=== PATIENT | male | born 1990 | race American Indian/Alaskan Native ===

== ENCOUNTER 2016-10-26 14:57 | Emergency (ER) | payer SELFPAY ==
[2016-10-26 17:06] LABS: Bacteria,Urine 1+ /HPF (Negative); Bilirubin,Urine NEG (Negative); Blood,Urine SM (Negative); Ketones,Urine NEG (Negative); Leukocyte Esterase,Urine LG (Negative); Mucus,Urine FEW /HPF; Nitrite,Urine NEG (Negative); Protein,Urine <15 mg/dL mg/dL (Negative); Sperm,Urine FEW /HPF (NP); Urobilinogen,Urine < 2.0 mg/dL (<2.0)
[2016-10-26 17:11] LABS: WBC,Urine > 182.0 /HPF (0.0-6.0)
[2016-10-26 18:28] VITALS: BP 107/64
[2016-10-26] MEDS ORDERED: ROCEPHIN IM ONE (19:09)
[2016-10-26] MEDS ORDERED: ZITHROMAX PO ONE (19:09)
[2016-10-26] MEDS ORDERED: ZOFRAN ODT PO ONE (19:09)
[2016-10-26] MEDS ORDERED: XYLOCAINE 1% MPF 5 mL INFILTRATI ONE (19:09)
--- NOTE | 2016-10-26 19:09 | Emergency Department Report ---
ED Male HPI - General Chief complaint: Urogenital-Male Stated complaint: PAINFUL URINATION Time Seen by Provider: 10/26/16 18:35 Source: patient Mode of arrival: Ambulatory Limitations: No Limitations - History of Present Illness Complaint: dysuria -: Gradual, days(s) Location: penis Radiation: none Severity: mild Severity scale (0 -10): 1 Quality: burning Consistency: intermittent (with urination) Improves with: none Worsens with: urination new sexual partner denies other symptoms (history of epididymitis ) - Related Data Sexually active: Yes Previous Rx's Medication Instructions Recorded Last Taken Type Doxycycline [Vibramycin CAP] 100 mg PO Q12HR #20 capsule 04/17/16 Unknown Rx Ibuprofen [Motrin] 800 mg PO Q8HR PRN #20 tablet 04/17/16 Unknown Rx Ondansetron [Zofran Odt] 4 mg PO Q8HR #20 tab.rapdis 04/17/16 Unknown Rx Sulfamethoxazole/Trimethoprim 1 each PO BID #14 tablet 10/26/16 Unknown Rx [Bactrim DS TAB] Allergies Allergy/AdvReac Type Severity Reaction Status Date / Time No Known Allergies Allergy Verified 11/28/15 11:33 ED Review of Systems ROS: Stated complaint: PAINFUL URINATION Other details as noted in HPI Comment: All other systems reviewed and negative ED Past Medical Hx - Past Medical History Previous Medical History?: Yes Additional medical history: ulcers - Surgical History Past Surgical History?: Yes Additional Surgical History: oral surgery, hemmorhoid removal - Social History Smoking Status: Current Every Day Smoker Substance Use Type: Alcohol - Medications Home Medications: Home Medications Medication Instructions Recorded Confirmed Last Taken Type Doxycycline [Vibramycin CAP] 100 mg PO Q12HR #20 capsule 04/17/16 Unknown Rx Ibuprofen [Motrin] 800 mg PO Q8HR PRN #20 tablet 04/17/16 Unknown Rx Ondansetron [Zofran Odt] 4 mg PO Q8HR #20 tab.rapdis 04/17/16 Unknown Rx Sulfamethoxazole/Trimethoprim 1 each PO BID #14 tablet 10/26/16 Unknown Rx [Bactrim DS TAB] ED Physical Exam - General Limitations: No Limitations - Other Other exam information: GENERAL: Patient in no acute distress HEAD: Normocephalic, atraumatic EYES: PERRLA, EOM intact, no scleral icterus, no papilledema, no conjunctival hemorrhage, visual cassidy and acuity wnl, NOSE: No tenderness, discharge, sinus tenderness MOUTH: No erythema, bleeding, exudate HEART: Regular rate and rhythm, no murmur, S1-S2 are auscultated, pulses are symmetric LUNGS: No wheezing, rales, rhonchi, bilateral breath sounds ABDOMEN: Normal bowel sounds, no tenderness, no rebound, no guarding, no masses , no CVA tenderness MUSCULOSKELETAL: Normal joint range of motion, no redness, no swelling, no tenderness NEUROLOGIC: GCS 15, Alert and Oriented x3, Cranial nerves intact, normal sensation, normal strength, normal gait, no cerebellar deficit PSYCHIATRIC: No homicidal or suicidal ideation, no anxiety, no depression, no hallucinations SKIN: Skin is warm and dry, no wounds, no rashes GENITOURINARY: Male: No rashes, ulcers, discharge, no scrotal masses, no hernia ED Course Vital Signs 10/26/16 10/26/16 10/26/16 15:46 18:22 18:27 Temperature 98.7 F 98.1 F Pulse Rate 70 72 Respiratory 20 16 16 Rate Blood Pressure 129/86 Blood Pressure 107/64 [Left] O2 Sat by Pulse 100 99 99 Oximetry ED Medical Decision Making - Lab Data Laboratory Results - last 24 hr 10/26/16 16:13 Urine Color Yellow Urine Turbidity Slightly-cloudy Urine pH 6.0 Ur Specific [place] 1.019 Urine Protein <15 mg/dl Urine Glucose (UA) Neg Urine Ketones Neg Urine Blood Sm Urine Nitrite Neg Urine Bilirubin Neg Urine Urobilinogen < 2.0 Ur Leukocyte Esterase Lg Urine WBC (Auto) > 182.0 H Urine RBC (Auto) 29.0 U Epithel Cells (Auto) < 1.0 Urine Bacteria (Auto) 1+ Urine Mucus Few Urine Sperm Few - Medical Decision Making Patient comfortable. Updated with results. Plan discharge with outpatient follow-up. Patient agrees with plan and will return if symptoms worsen. Critical care attestation.: If time is entered above; I have spent that time in minutes in the direct care of this critically ill patient, excluding procedure time. ED Disposition Clinical Impression: UTI (urinary tract infection) Qualifiers: Urinary tract infection type: site unspecified Hematuria presence: without hematuria Qualified Code(s): N39.0 - Urinary tract infection, site not specified Disposition: DISCHARGED TO HOME OR SELFCARE Is pt being admited?: No Condition: Stable Instructions: Urinary Tract Infection in Men (ED) Prescriptions: Sulfamethoxazole/Trimethoprim [Bactrim DS TAB] 1 each PO BID #14 tablet Referrals: PRIMARY CARE, [Primary Care Provider] - 2-3 Days Time of Disposition: 19:08
== END 2016-10-26 20:25 | disposition home or self-care (01) ==
LOC: ED 14:57
DX: N39.0 Urinary tract infection, site not specified (principal); F17.200 Nicotine dependence, unspecified, uncomplicated
CPT/HCPCS: 81001; 87086; 87591; 96372; 99283; J0696; Q0162

== ENCOUNTER 2017-03-13 15:14 | Emergency (ER) | payer SELFPAY ==
[2017-03-13 15:46] VITALS: BP 160/108
[2017-03-13 16:35] LABS: Basophils % (Auto) 0.5 % (0.0-1.8); Eosinophils % (Auto) 0.2 % (0.0-4.3); Hematocrit 51.4 % (35.5-45.6); Hemoglobin 17.3 gm/dl (11.8-15.2); Mean Corpuscular HGB Conc 34 % (32-34); Mean Corpuscular Hemoglobin 30 pg (28-32); Mean Corpuscular Volume 88 fl (84-94); Platelet Count 257 K/mm3 (140-440); Red Blood Count 5.82 M/mm3 (3.65-5.03); Red Cell Distribution Width 13.6 % (13.2-15.2); White Blood Count 12.2 K/mm3 (4.5-11.0)
[2017-03-13 16:47] LABS: Anion Gap 20 mmol/L; BUN/Creatinine Ratio 6.36; Blood Urea Nitrogen 7 mg/dL (9-20); Calcium 9.9 mg/dL (8.4-10.2); Carbon Dioxide 25 mmol/L (22-30); Chloride 100.2 mmol/L (98-107); Glucose 111 mg/dL (75-100); Potassium 3.8 mmol/L (3.6-5.0); Sodium 141 mmol/L (137-145)
--- NOTE | 2017-03-14 00:58 | ED Elopement Review ---
ED Pt Elopement review - Results review Lab results: Laboratory Tests 03/13/17 03/13/17 03/13/17 16:08 16:08 16:08 WBC 12.2 H RBC 5.82 H Hgb 17.3 H Hct 51.4 H MCV 88 MCH 30 MCHC 34 RDW 13.6 Plt Count 257 Lymph % (Auto) 15.4 Cass % (Auto) 7.4 H Eos % (Auto) 0.2 Baso % (Auto) 0.5 Lymph # 1.9 Cass # 0.9 H Eos # 0.0 Baso # 0.1 Seg Neutrophils % 76.5 H Seg Neutrophils # 9.3 H Sodium 141 Potassium 3.8 Chloride 100.2 Carbon Dioxide 25 Anion Gap 20 BUN 7 L Creatinine 1.1 Estimated GFR > 60 BUN/Creatinine Ratio 6.36 Glucose 111 H Calcium 9.9 Plasma/Serum Alcohol < 0.01 - Call Back decision Pt Call Back Decision: No action required
== END 2017-03-13 17:45 | disposition left against medical advice (07) ==
LOC: ED 15:14
DX: R51 Headache (principal); Z53.21 Procedure and treatment not carried out due to patient leaving prior to being seen by health care provider
CPT/HCPCS: 36415; 80048; 85025; 93005; 93010; G0480; 80320

== ENCOUNTER 2017-09-18 00:11 | Emergency (ER) | payer SELFPAY ==
[2017-09-18 00:56] LABS: Bacteria,Urine 3+ /HPF (Negative); Bilirubin,Urine NEG (Negative); Blood,Urine MOD (Negative); Color,Urine Yellow (Yellow); Mucus,Urine FEW /HPF; Nitrite,Urine NEG (Negative)
[2017-09-18 01:00] LABS: WBC,Urine > 182.0 /HPF (0.0-6.0)
--- NOTE | 2017-09-18 01:19 | Ultrasound Report ---
FINAL REPORT EXAM: US TESTICULAR DOPPLER COMP HISTORY: Left testicle swelling and pain TECHNIQUE: Routine sonographic evaluation was obtained of the scrotum along with Doppler interrogation of both testicles. FINDINGS: The right testicle is normal size contour blood flow and echotexture measuring 4.5 cm x 1.5 cm x 2.5 cm. The right epididymis is normal in size and echotexture. There is no evidence of hydrocele. The left testicle is normal size contour blood flow and echotexture measuring 4.1 cm x 1.9 cm x 2.8 cm. The left epididymis is enlarged having heterogeneous echotexture and increased blood flow compatible with epididymitis. There is no evidence of hydrocele. IMPRESSION: Left-sided epididymitis. No evidence of testicular neoplasia or torsion. No evidence of hydrocele or varicocele.
--- NOTE | 2017-09-18 06:03 | Emergency Department Report ---
ED Male HPI - General Chief complaint: Urogenital-Male Stated complaint: d/c from penis Time Seen by Provider: 09/18/17 05:57 Source: patient Mode of arrival: Ambulatory Limitations: No Limitations - History of Present Illness Initial comments: This is a 26 y.o. male presents with penile discharge, pelvic pain, and left swollen testicle. Patient reports discharge started 1 week ago and swelling of testicle last night. States it is painful to void and sit. He had something similar to this once and think it is back. Admits to recent exposure to sexually transmitted infections. Denies fever, back pain, frequency, and urgency. MD Complaint: testicle pain, testicle swelling, penile discharge, dysuria -: week(s) (1) Location: left testicle, abdomen Radiation: none Severity: severe Severity scale (0 -10): 10 Quality: aching, burning Consistency: constant Improves with: none Worsens with: urination, movement new sexual partner discharge, swelling, dysuria. denies: mass, rash, urinary retention, blood in urine, fever, nausea/vomiting, incontinence - Related Data Sexually active: Yes Previous Rx's Medication Instructions Recorded Last Taken Type Doxycycline [Vibramycin CAP] 100 mg PO Q12HR #20 capsule 04/17/16 Unknown Rx Ibuprofen [Motrin] 800 mg PO Q8HR PRN #20 tablet 04/17/16 Unknown Rx Ondansetron [Zofran Odt] 4 mg PO Q8HR #20 tab.rapdis 04/17/16 Unknown Rx Sulfamethoxazole/Trimethoprim 1 each PO BID #14 tablet 10/26/16 Unknown Rx [Bactrim DS TAB] Doxycycline Monohydrate 100 mg PO BID 14 Days #28 tablet 09/18/17 Unknown Rx Allergies Allergy/AdvReac Type Severity Reaction Status Date / Time No Known Allergies Allergy Verified 11/28/15 11:33 ED Review of Systems ROS: Stated complaint: d/c from penis Other details as noted in HPI Constitutional: denies: chills, fever Respiratory: denies: cough, shortness of breath, wheezing Cardiovascular: denies: chest pain, palpitations Gastrointestinal: abdominal pain. denies: nausea, diarrhea Genitourinary: dysuria, discharge, testicular pain (left). denies: urgency, frequency, hematuria, testicular mass Skin: denies: rash, lesions Neurological: denies: headache, weakness, paresthesias ED Past Medical Hx - Past Medical History Previous Medical History?: No Additional medical history: ulcers - Surgical History Additional Surgical History: oral surgery, hemmorhoid removal - Social History Smoking Status: Current Every Day Smoker Substance Use Type: None - Medications Home Medications: Home Medications Medication Instructions Recorded Confirmed Last Taken Type Doxycycline [Vibramycin CAP] 100 mg PO Q12HR #20 capsule 04/17/16 Unknown Rx Ibuprofen [Motrin] 800 mg PO Q8HR PRN #20 tablet 04/17/16 Unknown Rx Ondansetron [Zofran Odt] 4 mg PO Q8HR #20 tab.rapdis 04/17/16 Unknown Rx Sulfamethoxazole/Trimethoprim 1 each PO BID #14 tablet 10/26/16 Unknown Rx [Bactrim DS TAB] Doxycycline Monohydrate 100 mg PO BID 14 Days #28 tablet 09/18/17 Unknown Rx ED Physical Exam - General Limitations: No Limitations General appearance: alert, in no apparent distress - Respiratory Respiratory exam: Present: normal lung sounds bilaterally. Absent: respiratory distress - Cardiovascular Cardiovascular Exam: Present: regular rate, normal rhythm. Absent: systolic murmur, diastolic murmur, rubs, gallop - GI/Abdominal GI/Abdominal exam: Present: soft, normal bowel sounds - exam: Present: testicular tenderness, urethral discharge (purulent) External exam: Present: erythema, swelling (hot, erythematous, swollen hemiscrotum). Absent: lesions, lacerations, ecchymosis, bleeding - Neurological Exam Neurological exam: Present: alert, oriented X3 - Skin Skin exam: Present: warm, dry, intact, normal color. Absent: rash ED Course Vital Signs 09/18/17 00:22 Temperature 99.4 F Pulse Rate 94 H Respiratory 16 Rate Blood Pressure 137/98 O2 Sat by Pulse 100 Oximetry ED Medical Decision Making - Radiology Data Radiology results: image reviewed Testicular US IMPRESSION: Left-sided epididymitis. No evidence of testicular neoplasia or torsion. No evidence of hydrocele or varicocele. - Medical Decision Making This is a 26 y.o. male who presents with penile discharge, dysuria, and swollen left testicle. Discharge for 1 week and swollen left testicle for 1 day. Patient was examined by me. History of epididymitis. Recent STI exposure. Obtained UA elevated WBC and moderate blood, Testicular US noted left side epididymitis, and GC pending. Discussed results and ER plan with patient. Patient agreed to ER care plan. Given ceftriaxone 250 mg IM in ER. Discharged home with doxycycline 100 mg po bid x 14 days. Instructed to avoid unprotected sexual intercourse. Inform partners. Scrotal elevation. Use tylenol or NSAID's for pain. Complete the full course of antibiotics to prevent recurrence. Critical care attestation.: If time is entered above; I have spent that time in minutes in the direct care of this critically ill patient, excluding procedure time. ED Disposition Clinical Impression: Epididymitis Disposition: - TO HOME OR SELFCARE Is pt being admited?: No Does the pt Need Aspirin: No Condition: Stable Instructions: Epididymitis (ED), Safe Sex (ED), Sexually Transmitted Diseases ( ED) Additional Instructions: Avoid having unprotected sexual intercourse. Inform sexual partners of diagnosis for treatment. Wear jock strap for scrotal elevation until inflammation resolve. Take tylenol, ibuprofen, or naproxen to control pain and fever. complete the full course of antibiotics to prevent recurrence of infection. Follow up with the Health Department or primary care provider if symptoms persist after completion of treatment. Prescriptions: Doxycycline Monohydrate 100 mg PO BID 14 Days #28 tablet Referrals: [facility] [Outside] - 3[facility] Days [facility] - 3-5 Days [facility] [Outside] - 3-5 Days Forms: STI Treatment and Prevention, Work/School Release Form(ED) Time of Disposition: 06:31 Print Language: OCCITAN
[2017-09-18] MEDS ORDERED: ROCEPHIN IM ONE (06:18)
[2017-09-18] MEDS ORDERED: XYLOCAINE 1% MPF 5 mL INFILTRATI ONE (06:18)
[2017-09-18 06:38] VITALS: BP 141/84
== END 2017-09-18 06:44 | disposition home or self-care (01) ==
LOC: ED 00:11
DX: N45.1 Epididymitis (principal); F17.200 Nicotine dependence, unspecified, uncomplicated
CPT/HCPCS: 81001; 87591; 93975; 96372; 99284; J0696

== ENCOUNTER 2020-01-20 10:31 | Emergency (ER) | payer SELFPAY ==
[2020-01-20 10:38] VITALS: BP 143/103
--- NOTE | 2020-01-20 10:54 | Emergency Department Report ---
Chief Complaint: Urogenital-Male Stated Complaint: DISCHARGE Time Seen by Provider: 01/20/20 10:49 - HPI History of Present Illness: 29-year-old -[place] male presents to the ER for penile discharge and possible STD exposure. Patient denies any fever chills no nausea vomiting or diarrhea. Denies any abdominal pain shortness of breath or chest pain. - Exam Vital Signs: Vital Signs 01/20/20 10:35 Temperature 98.1 F Pulse Rate 72 Respiratory 18 Rate Blood Pressure 143/103 O2 Sat by Pulse 97 Oximetry Physical Exam: Alert and oriented no acute distress nontoxic in appearance Respirations even unlabored Patient is ambulatory without difficulties MSE screening note: Focused history and physical exam performed. Due to findings the following was ordered: 29-year-old -[place] male presents to the ER for penile discharge and possible STD exposure. Patient denies any fever chills no nausea vomiting or diarrhea. Denies any abdominal pain shortness of breath or chest pain. Patient referred to urgent care and health department for further evaluation and treatment. Patient is at no risk for loss of limb or life. ED Disposition for MSE Disposition: Z-07 MED SCREENING EXAM-LEFT Is pt being admited?: No Does the pt Need Aspirin: No Condition: Stable Referrals: PRIMARY CARE, [Primary Care Provider] - 3-5 Days [facility] [Other] - 3-5 Days Forms: Work/School Release Form(ED)
== END 2020-01-20 12:39 | disposition left against medical advice (07) ==
LOC: ED 10:31
DX: R36.9 Urethral discharge, unspecified (principal); Z53.21 Procedure and treatment not carried out due to patient leaving prior to being seen by health care provider

== ENCOUNTER 2020-06-08 07:46 | Emergency (ER) | payer SELFPAY ==
[2020-06-08 08:31] LABS: Basophils % (Auto) 0.4 % (0.0-1.8); Hematocrit 51.4 % (35.5-45.6); Hemoglobin 18.1 gm/dl (11.8-15.2); Lymphocytes % (Auto) 15.7 % (13.4-35.0); Mean Corpuscular HGB Conc 35 % (32-34); Mean Corpuscular Volume 97 fl (84-94); Monocytes # (Auto) 1.2 K/mm3 (0.0-0.8); Monocytes % (Auto) 9.2 % (0.0-7.3); Platelet Count 238 K/mm3 (140-440); Red Blood Count 5.31 M/mm3 (3.65-5.03); Red Cell Distribution Width 13.8 % (13.2-15.2)
[2020-06-08 08:47] LABS: BUN/Creatinine Ratio 8; Blood Urea Nitrogen 10 mg/dL (9-20); Calcium 10.1 mg/dL (8.4-10.2); Hemolysis Index 21
[2020-06-08 11:06] LABS: Bilirubin,Urine NEG (Negative); Blood,Urine MOD (Negative); Color,Urine Straw (Yellow); Urobilinogen,Urine < 2.0 mg/dL (<2.0)
[2020-06-08 11:27] LABS: Amphetamine Screen,Urine PRESUMPTIVE NEGATIVE; Benzodiazepines Screen,Urine PRESUMPTIVE NEGATIVE; Cannabinoid Screen,Urine PRESUMPTIVE POSITIVE; Cocaine Screen,Urine PRESUMPTIVE POSITIVE; Methadone Screen,Urine PRESUMPTIVE NEGATIVE; Opiate Screen,Urine PRESUMPTIVE NEGATIVE
== END 2020-06-08 08:15 | disposition left against medical advice (07) ==
LOC: ED 07:46
DX: R50.9 Fever, unspecified (principal); Z53.21 Procedure and treatment not carried out due to patient leaving prior to being seen by health care provider
CPT/HCPCS: 36415; 80048; 80307; 80320; 81001; 85025; G0480

== ENCOUNTER 2021-04-14 16:20 | Emergency (ER) | payer OTHER ==
[2021-04-14 20:34] VITALS: BP 157/97
--- NOTE | 2021-04-14 20:36 | Event Note ---
ED Screening Note ED Screening Note: n/v that began three days ago states he has been having blood in his vomit mild diarrhea +dark blood in stool got a COVID 19 test and it was negative hx of PUD not on any medication no allergies to meds +tobacco +marijuana +ETOH, a bottle a day This initial assessment/diagnostic orders/clinical plan/treatment(s) is/are subject to change based on patients health status, clinical progression and re- assessment by fellow clinical providers in the ED. Further treatment and workup at subsequent clinical providers discretion. Patient/guardian urged not to elope from the ED as their condition may be serious if not clinically assessed and managed. Initial orders include: labs
[2021-04-14 21:07] LABS: Basophils # (Auto) 0.1 K/mm3 (0.0-0.1); Basophils % (Auto) 0.9 % (0.0-1.8); Eosinophils # (Auto) 0.2 K/mm3 (0.0-0.4); Eosinophils % (Auto) 2.6 % (0.0-4.3); Hematocrit 54.9 % (35.5-45.6); Hemoglobin 18.4 gm/dl (11.8-15.2); Lymphocytes # (Auto) 1.8 K/mm3 (1.2-5.4); Lymphocytes % (Auto) 21.4 % (13.4-35.0); Mean Corpuscular HGB Conc 34 % (32-34); Mean Corpuscular Volume 99 fl (84-94); Monocytes # (Auto) 0.8 K/mm3 (0.0-0.8); Monocytes % (Auto) 9.6 % (0.0-7.3); Platelet Count 216 K/mm3 (140-440); Red Blood Count 5.54 M/mm3 (3.65-5.03); Red Cell Distribution Width 13.6 % (13.2-15.2)
[2021-04-14 21:14] LABS: Alanine Aminotransferase 19 units/L (7-56); Albumin 4.5 g/dL (3.9-5); BUN/Creatinine Ratio 8; Blood Urea Nitrogen 8 mg/dL (9-20); Calcium 10.4 mg/dL (8.4-10.2); Hemolysis Index 12
[2021-04-14 21:38] LABS: INR 0.97 (0.87-1.13)
[2021-04-14 21:39] LABS: Partial Thromboplastin Time 30.5 Sec. (24.2-36.6)
--- NOTE | 2021-04-14 22:45 | Cat Scan Report ---
CT ABDOMEN AND PELVIS WITH CONTRAST INDICATION / CLINICAL INFORMATION: Pt complains of abd pain, N/V/D, blood in stool and vomiting. TECHNIQUE: Axial CT images were obtained through the abdomen and pelvis after Omnipaque 300, 100 cc I V contrast. All CT scans at this location are performed using CT dose reduction for ALARA by means o f automated exposure control. COMPARISON: None available. FINDINGS: LOWER CHEST: No significant abnormality. LIVER: No significant abnormality. GALLBLADDER: No significant abnormality. BILE DUCTS: No significant abnormality. PANCREAS: No significant abnormality. SPLEEN: No significant abnormality. ADRENALS: No significant abnormality. RIGHT KIDNEY / URETER: No significant abnormality. LEFT KIDNEY / URETER: No significant abnormality. STOMACH / SMALL BOWEL: No significant abnormality. COLON: No significant abnormality. APPENDIX: No significant abnormality. PERITONEUM: No free fluid. No free air. No fluid collection. LYMPH NODES: No significant adenopathy. VASCULAR STRUCTURES: No significant abnormality. URINARY BLADDER: No significant abnormality. REPRODUCTIVE ORGANS: No significant abnormality. ADDITIONAL FINDINGS: Small fat-containing umbilical hernia. SKELETAL SYSTEM: No significant abnormality. IMPRESSION: Negative for obstruction or localized inflammation. Signer Name: Saurabh Alvarenga MD Signed: 04/14/2021 10:41 PM Workstation Name: [id number]
[2021-04-14] MEDS ORDERED: ALUM-MAG HYDROXIDE-SIMETHICONE 200-200-20MG/5ML ORAL LIQD 30 ML PO STA (22:51)
[2021-04-14] MEDS ORDERED: diphenhydrAMINE 25 MG/10 ML ORAL LIQUID PO ONE (22:51)
[2021-04-14] MEDS ORDERED: LIDOCAINE VISCOUS 2% 15 ML ORAL LIQD PO ONE (22:51)
--- NOTE | 2021-04-15 00:41 | Emergency Department Report ---
ED Abdominal Pain HPI - General Chief Complaint: GI Bleed Stated Complaint: ABD PAIN Time Seen by Provider: 04/14/21 20:34 Source: patient Mode of arrival: Ambulatory Limitations: No Limitations - History of Present Illness Initial Comments: 30-year-old [place] male past medical history of peptic ulcer disease presents [facility] department complaining of epigastric pain radiates to left upper quadrant associated with burning sensation 70s to the mouth but no fever, chills, sweats. No hemoptysis no hematemesis hematochezia, no diarrhea, no constipation. MD Complaint: abdominal pain Radiation: none Migration to: LUQ - Related Data Previous Rx's Medication Instructions Recorded Last Taken Type DOXYCYCLINE Hyclate [Vibramycin 100 mg PO Q12HR #20 capsule 04/17/16 Unknown Rx CAP] Ibuprofen [Motrin] 800 mg PO Q8HR PRN #20 tablet 04/17/16 Unknown Rx Ondansetron [Zofran Odt] 4 mg PO Q8HR #20 tab.rapdis 04/17/16 Unknown Rx Sulfamethoxazole/Trimethoprim 1 each PO BID #14 tablet 10/26/16 Unknown Rx [Bactrim DS TAB] Doxycycline Monohydrate 100 mg PO BID 14 Days #28 tablet 09/18/17 Unknown Rx Amoxicillin/Potassium Clav 1 each PO BID #14 tablet 09/27/18 Unknown Rx [Augmentin 875-125 Tablet] HYDROcodone/APAP 5-325 [[place] 1 each PO Q6HR PRN #15 tablet 09/27/18 Unknown Rx 5/325] predniSONE [Deltasone] 20 mg PO QDAY #5 tab 09/27/18 Unknown Rx Esomeprazole Magnesium [Nexium 20 mg PO DAILY #30 capsule. 04/15/21 Unknown Rx 24Hr] Hyoscyamine Subl [Levsin Sl 0.125 0.125 mg SL Q6HR #14 tab 04/15/21 Unknown Rx TAB] Allergies Allergy/AdvReac Type Severity Reaction Status Date / Time No Known Allergies Allergy Verified 11/28/15 11:33 ED Review of Systems ROS: Stated complaint: ABD PAIN Other details as noted in HPI Comment: All other systems reviewed and negative ED Past Medical Hx - Past Medical History Previous Medical History?: Yes Hx Hypertension: Yes Hx Diabetes: Yes (no meds) Hx Psychiatric Treatment: Yes (anxiety) Additional medical history: gastric ulcers - Surgical History Past Surgical History?: Yes Additional Surgical History: oral surgery, hemmorhoid removal - Social History Smoking Status: Current Every Day Smoker Substance Use Type: Alcohol, Cocaine, Heroin, Marijuana - Medications Home Medications: Home Medications Medication Instructions Recorded Confirmed Last Taken Type DOXYCYCLINE Hyclate [Vibramycin 100 mg PO Q12HR #20 capsule 04/17/16 Unknown Rx CAP] Ibuprofen [Motrin] 800 mg PO Q8HR PRN #20 tablet 04/17/16 Unknown Rx Ondansetron [Zofran Odt] 4 mg PO Q8HR #20 tab.rapdis 04/17/16 Unknown Rx Sulfamethoxazole/Trimethoprim 1 each PO BID #14 tablet 10/26/16 Unknown Rx [Bactrim DS TAB] Doxycycline Monohydrate 100 mg PO BID 14 Days #28 tablet 09/18/17 Unknown Rx Amoxicillin/Potassium Clav 1 each PO BID #14 tablet 09/27/18 Unknown Rx [Augmentin 875-125 Tablet] HYDROcodone/APAP 5-325 [[place] 1 each PO Q6HR PRN #15 tablet 09/27/18 Unknown Rx 5/325] predniSONE [Deltasone] 20 mg PO QDAY #5 tab 09/27/18 Unknown Rx Esomeprazole Magnesium [Nexium 20 mg PO DAILY #30 capsule.dr 04/15/21 Unknown Rx 24Hr] Hyoscyamine Subl [Levsin Sl 0.125 0.125 mg SL Q6HR #14 tab 04/15/21 Unknown Rx TAB] ED Physical Exam - General Limitations: No Limitations General appearance: alert, in no apparent distress, anxious - Head Head exam: Present: atraumatic, normocephalic - Eye Eye exam: Present: normal appearance, EOMI, scleral icterus Pupils: Present: normal accommodation - ENT ENT exam: Present: normal exam, mucous membranes moist - Neck Neck exam: Present: normal inspection - Respiratory Respiratory exam: Present: normal lung sounds bilaterally. Absent: respiratory distress - Cardiovascular Cardiovascular Exam: Present: regular rate, normal rhythm. Absent: systolic murmur, diastolic murmur, rubs, gallop - GI/Abdominal GI/Abdominal exam: Present: soft, normal bowel sounds - Rectal Rectal exam: Present: deferred - Extremities Exam Extremities exam: Present: normal inspection - Back Exam Back exam: Present: normal inspection - Neurological Exam Neurological exam: Present: alert, oriented X3 - Psychiatric Psychiatric exam: Present: normal affect, normal mood - Skin Skin exam: Present: warm, dry, intact, normal color. Absent: rash ED Course Vital Signs 04/14/21 20:32 Temperature 98.9 F Pulse Rate 60 Respiratory 18 Rate Blood Pressure 157/97 O2 Sat by Pulse 97 Oximetry ED Medical Decision Making - Lab Data Result diagrams: 04/14/21 20:42 04/14/21 20:42 - Medical Decision Making This patient presents with abdominal pain of unclear etiology. Their evaluation has not identified a emergent etiology for the abdominal pain. Specifically, given the very benign exam, normal laboratory studies, and lack of significant risk factors, I have a very low suspicion for appendicitis, ischemic bowel, bowel perforation, or any other life threatening disease. I have discussed with the patient the level of uncertainty with undifferentiated abdominal pain and clearly explained the need to follow-up as noted on the discharge instructions, or return to the Emergency Department immediately if the pain worsens, develops fever, persistent and uncontrollable vomiting, or for any new symptoms or concerns. I discussed with the patient that this presentation today for abdominal pain could represent a significant risk for an acute abdominal p rocess. Although the tests in the ED were essentially normal, there is still a possibility of a process such as appendicitis, diverticulitis, cholecystitis, ulcer, early bowel obstruction, mesenteric ischemia, kidney stone, or even kidney infection which could subsequently cause disability or . The patient understands that they must return within 24 hours for a recheck or see their physician within 24 hours for re-exam due to the possibility of significant surgical or medical process. Critical care attestation.: If time is entered above; I have spent that time in minutes in the direct care of this critically ill patient, excluding procedure time. ED Disposition Clinical Impression: Abdominal pain, Gastritis Disposition: HOME / SELF CARE / HOMELESS Is pt being admited?: No Does the pt Need Aspirin: No Condition: Stable Instructions: Gastritis, Adult, [id number], Gastritis, Adult, Upper Endoscopy, Adult, Care After Prescriptions: Hyoscyamine Subl [Levsin Sl 0.125 TAB] 0.125 mg SL Q6HR #14 tab Esomeprazole Magnesium [Nexium 24Hr] 20 mg PO DAILY #30 capsule. Referrals: PRIMARY CARE [Primary Care Provider] - 3-5 Days [facility] [Provider Group] - 3-5 Days
== END 2021-04-15 01:22 | disposition home or self-care (01) ==
LOC: ED 16:20
DX: K29.70 Gastritis, unspecified, without bleeding (principal); R10.13 Epigastric pain; I10 Essential (primary) hypertension; E11.9 Type 2 diabetes mellitus without complications; F41.9 Anxiety disorder, unspecified; F17.200 Nicotine dependence, unspecified, uncomplicated; F12.90 Cannabis use, unspecified, uncomplicated; F14.90 Cocaine use, unspecified, uncomplicated; F15.90 Other stimulant use, unspecified, uncomplicated; Z79.899 Other long term (current) drug therapy; Z98.890 Other specified postprocedural states
CPT/HCPCS: 36415; 74177; 80053; 83690; 85025; 85610; 85730; 99284; Q0163; Q9967

== ENCOUNTER 2021-09-09 18:15 | Emergency (ER) | payer SELFPAY ==
[2021-09-09] MEDS ORDERED: amLODIPine 5 MG TAB PO ONE (23:52)
[2021-09-09] MEDS ORDERED: ONDANSETRON 4 MG ODT TAB PO ONE (23:52)
--- NOTE | 2021-09-10 02:11 | Emergency Department Report ---
HPI - General Chief Complaint: Nausea/Vomiting/Diarrhea Time Seen by Provider: 09/10/21 02:01 - HPI HPI: Room 29 The patient is a 30-year-old male present with a chief complaint of nausea vomiting. Patient states he was in his usual state of health until he ate a pickle. Patient states 15 minutes later he developed nausea and vomiting. Patient admits to some pain to the left of the epigastric region. Patient was administered Zofran and amlodipine prior to my evaluation and he now states he feels much better ED Past Medical Hx - Past Medical History Previous Medical History?: Yes Hx Hypertension: Yes Hx Diabetes: Yes (Borderline diabetes) Hx Psychiatric Treatment: Yes (anxiety) Additional medical history: gastric ulcers - Surgical History Past Surgical History?: Yes Additional Surgical History: oral surgery, hemmorhoid removal - Family History Family history: no significant - Social History Smoking Status: Current Every Day Smoker (1/2 pack/day) Substance Use Type: Alcohol, Cocaine, Heroin, Marijuana - Medications Home Medications: Home Medications Medication Instructions Recorded Confirmed Last Taken Type DOXYCYCLINE Hyclate [Vibramycin 100 mg PO Q12HR #20 capsule 04/17/16 Unknown Rx CAP] Ibuprofen [Motrin] 800 mg PO Q8HR PRN #20 tablet 04/17/16 Unknown Rx Ondansetron [Zofran Odt] 4 mg PO Q8HR #20 tab.rapdis 04/17/16 Unknown Rx Sulfamethoxazole/Trimethoprim 1 each PO BID #14 tablet 10/26/16 Unknown Rx [Bactrim DS TAB] Doxycycline Monohydrate 100 mg PO BID 14 Days #28 tablet 09/18/17 Unknown Rx Amoxicillin/Potassium Clav 1 each PO BID #14 tablet 09/27/18 Unknown Rx [Augmentin 875-125 Tablet] HYDROcodone/APAP 5-325 [[place] 1 each PO Q6HR PRN #15 tablet 09/27/18 Unknown Rx 5/325] predniSONE [Deltasone] 20 mg PO QDAY #5 tab 09/27/18 Unknown Rx Esomeprazole Magnesium [Nexium 20 mg PO DAILY #30 capsule.dr 04/15/21 Unknown Rx 24Hr] Hyoscyamine Subl [Levsin Sl 0.125 0.125 mg SL Q6HR #14 tab 04/15/21 Unknown Rx TAB] Ondansetron [Zofran ODT TAB] 8 mg PO Q8HR #20 tab.rapdis 09/10/21 Unknown Rx Sulfamethoxazole/Trimethoprim 1 each PO BID #14 09/10/21 Unknown Rx [Bactrim DS TAB] ED Review of Systems ROS: Stated complaint: VOMITING/AB PAINS Other details as noted in HPI Constitutional: no symptoms reported Eyes: denies: eye pain ENT: denies: throat pain Respiratory: no symptoms reported Cardiovascular: denies: chest pain Endocrine: no symptoms reported Gastrointestinal: abdominal pain, nausea, vomiting Genitourinary: denies: dysuria Musculoskeletal: denies: back pain Neurological: denies: headache Physical Exam - Physical Exam Vital Signs: Vital Signs 09/09/21 09/10/21 23:32 00:05 Temperature 98.9 F Pulse Rate 86 86 Respiratory 20 Rate Blood Pressure 187/128 Blood Pressure 187/128 [Right] O2 Sat by Pulse 99 Oximetry Physical Exam: GENERAL: The patient is well-developed well-nourished male lying in chair not appearing to be in acute distress. [] HEENT: Normocephalic. Atraumatic. Extraocular motions are intact. Patient has moist mucous membranes. NECK: Supple. Trachea midline CHEST/LUNGS: Clear to auscultation. There is no respiratory distress noted. HEART/CARDIOVASCULAR: Regular. There is no tachycardia. There is no gallop rub or murmur. ABDOMEN: Abdomen is soft, with mild tenderness in the epigastric/left epigastric region. There is no rebound or guard. Patient has normal bowel sounds. There is no abdominal distention. SKIN: There is no rash. There is no edema. There is no diaphoresis. NEURO: The patient is awake, alert, and oriented. The patient is cooperative. The patient has no focal neurologic deficits. The patient has normal speech. GCS 15 MUSCULOSKELETAL: There is no evidence of acute injury. ED Course Vital Signs 09/09/21 09/10/21 23:32 00:05 Temperature 98.9 F Pulse Rate 86 86 Respiratory 20 Rate Blood Pressure 187/128 Blood Pressure 187/128 [Right] O2 Sat by Pulse 99 Oximetry ED Medical Decision Making - Lab Data Result diagrams: 09/10/21 02:31 09/10/21 02:31 Laboratory Tests 09/10/21 09/10/21 09/10/21 02:31 02:31 02:31 WBC 10.8 RBC 5.74 H Hgb 18.5 H Hct 55.6 H MCV 97 H MCH 32 MCHC 33 RDW 14.0 Plt Count 249 Lymph % (Auto) 21.1 [place] % (Auto) 10.3 H Eos % (Auto) 0.4 Baso % (Auto) 0.3 Lymph # (Auto) 2.3 [place] # (Auto) 1.1 H Eos # (Auto) 0.0 Baso # (Auto) 0.0 Seg Neutrophils % 67.9 Seg Neutrophils # 7.4 VBG pH 7.353 Sodium 137 Potassium 3.5 L Chloride 100.7 Carbon Dioxide 21 L Anion Gap 19 BUN 16 Creatinine 1.1 Estimated GFR > 60 BUN/Creatinine Ratio 15 Glucose 146 H Calcium 9.8 Total Bilirubin 0.90 AST 28 ALT 29 Alkaline Phosphatase 77 Total Protein 8.5 H Albumin 4.7 Albumin/Globulin Ratio 1.2 Lipase 43 Urine Color Urine Turbidity Urine pH Ur Specific [place] Urine Protein Urine Glucose (UA) Urine Ketones Urine Blood Urine Nitrite Urine Bilirubin Urine Urobilinogen Ur Leukocyte Esterase Urine WBC (Auto) Urine RBC (Auto) Urine Mucus 09/10/21 Unknown WBC RBC Hgb Hct MCV MCH MCHC RDW Plt Count Lymph % (Auto) [place] % (Auto) Eos % (Auto) Baso % (Auto) Lymph # (Auto) [place] # (Auto) Eos # (Auto) Baso # (Auto) Seg Neutrophils % Seg Neutrophils # VBG pH Sodium Potassium Chloride Carbon Dioxide Anion Gap BUN Creatinine Estimated GFR BUN/Creatinine Ratio Glucose Calcium Total Bilirubin AST ALT Alkaline Phosphatase Total Protein Albumin Albumin/Globulin Ratio Lipase Urine Color Yellow Urine Turbidity Clear Urine pH 5.0 Ur Specific [place] 1.025 Urine Protein 100 mg/dl Urine Glucose (UA) Neg Urine Ketones Tr Urine Blood Neg Urine Nitrite Neg Urine Bilirubin Neg Urine Urobilinogen < 2.0 Ur Leukocyte Esterase Tr Urine WBC (Auto) 52.0 H Urine RBC (Auto) 1.0 Urine Mucus Few - Differential Diagnosis Gastritis, peptic ulcer disease, pancreatitis Critical care attestation.: If time is entered above; I have spent that time in minutes in the direct care of this critically ill patient, excluding procedure time. ED Disposition Clinical Impression: Gastritis, Nausea & vomiting, UTI (urinary tract infection) Disposition: HOME / SELF CARE / HOMELESS Is pt being admited?: No Does the pt Need Aspirin: No Condition: Stable Prescriptions: Sulfamethoxazole/Trimethoprim [Bactrim DS TAB] 1 each PO BID #14 Ondansetron [Zofran ODT TAB] 8 mg PO Q8HR #20 tab.abydis Referrals: PRIMARY CARE, [Primary Care Provider] - 3-5 Days GERONIMO PAYNE MD [Staff Physician] - 3-5 Days (Dr. Payne is a gastro enterologist. Please follow-up with him if your symptoms persist) Time of Disposition: 03:50
[2021-09-10 02:38] LABS: Bilirubin,Urine NEG (Negative); Blood,Urine NEG (Negative); Color,Urine Yellow (Yellow); Mucus,Urine FEW /HPF; Urobilinogen,Urine < 2.0 mg/dL (<2.0)
[2021-09-10 02:54] LABS: Basophils % (Auto) 0.3 % (0.0-1.8); Eosinophils % (Auto) 0.4 % (0.0-4.3); Hematocrit 55.6 % (35.5-45.6); Hemoglobin 18.5 gm/dl (11.8-15.2); Lymphocytes # (Auto) 2.3 K/mm3 (1.2-5.4); Lymphocytes % (Auto) 21.1 % (13.4-35.0); Mean Corpuscular HGB Conc 33 % (32-34); Mean Corpuscular Volume 97 fl (84-94); Monocytes # (Auto) 1.1 K/mm3 (0.0-0.8); Monocytes % (Auto) 10.3 % (0.0-7.3); Platelet Count 249 K/mm3 (140-440); Red Blood Count 5.74 M/mm3 (3.65-5.03)
[2021-09-10 03:20] LABS: Alanine Aminotransferase 29 units/L (7-56); Albumin 4.7 g/dL (3.9-5); BUN/Creatinine Ratio 15; Blood Urea Nitrogen 16 mg/dL (9-20); Calcium 9.8 mg/dL (8.4-10.2); Hemolysis Index 4
[2021-09-10 03:43] VITALS: BP 148/102
== END 2021-09-10 04:00 | disposition home or self-care (01) ==
LOC: ED 18:15
DX: K29.70 Gastritis, unspecified, without bleeding (principal); N39.0 Urinary tract infection, site not specified; I10 Essential (primary) hypertension; E11.9 Type 2 diabetes mellitus without complications; F17.200 Nicotine dependence, unspecified, uncomplicated; F12.10 Cannabis abuse, uncomplicated; F14.10 Cocaine abuse, uncomplicated
CPT/HCPCS: 36415; 80053; 81001; 82805; 83690; 85025; 87086; 99283; J3490; Q0162